=== PATIENT | female | born 1960 | race African-American/Black ===

== ENCOUNTER 2017-08-29 07:44 | Emergency (ER) | payer MEDICARE, MEDICAID ==
[~2017-08-29] VITALS: Ht 157.5 cm; Wt 84.0 kg
[2017-08-29] MEDS ORDERED: CYCLOBENZAPRINE 10MG TABLET PO ONE (11:00)
[2017-08-29] MEDS ORDERED: ACETAMINOPHEN 325MG TABLET PO ONE (11:00)
[2017-08-29] MEDS ORDERED: BACITRACIN ZINC OINT UDPKT TOP ONE (11:00)
[2017-08-29 11:41] VITALS: BP 156/71
== END 2017-08-29 11:43 | disposition home or self-care (01) ==
LOC: ER 07:56
DX: R07.81 Pleurodynia (principal); M25.562 Pain in left knee; E11.9 Type 2 diabetes mellitus without complications; I10 Essential (primary) hypertension; E03.9 Hypothyroidism, unspecified; M48.00 Spinal stenosis, site unspecified; F17.200 Nicotine dependence, unspecified, uncomplicated; E78.00 Pure hypercholesterolemia, unspecified; V89.2XXA Person injured in unspecified motor-vehicle accident, traffic, initial encounter; Y93.89 Activity, other specified; Y99.8 Other external cause status; Y92.410 Unspecified street and highway as the place of occurrence of the external cause; Z88.5 Allergy status to narcotic agent; Z98.51 Tubal ligation status
CPT/HCPCS: 71111; 73560; 99284

== ENCOUNTER 2021-02-20 18:22 | Inpatient (IN) | payer MEDICARE, MEDICAID ==
[~2021-02-20] VITALS: Ht 157.5 cm; Wt 87.5 kg
[2021-02-20 19:25] LABS: BASOPHILS % 0.9 % (0.0-2.0); EOSINOPHILS % 1.2 % (0.0-5.0); HEMOGLOBIN. 9.9 g/dL (12.0-16.0); LYMPHOCYTES % 32.3 % (20.0-50.0); MEAN CORPUSCULAR HEMOGLOBIN 22.5 pg (28.0-32.0); MEAN CORPUSCULAR VOLUME 70.2 fL (81.0-99.0); MEAN PLATELET VOLUME 10.2 fl (7.4-10.4); MONOCYTES % 10.9 % (2.0-8.0); NEUTROPHILS % 54.7 % (40.0-76.0); PLATELET 344 x1000/uL (130-400); RED BLOOD CELL COUNT 4.41 mill/uL (4.2-5.4); RED CELL DISTRIBUTION WIDTH 18.1 % (11.6-14.6)
[2021-02-20 19:27] LABS: CHLORIDE 106 mEq/L (98-107)
[2021-02-20 20:24] LABS: CLARITY URINE CLEAR (CLEAR); COLOR URINE YELLOW (YELLOW); KETONES URINE TRACE (NEGATIVE); LEUKOCYTE ESTERASE URINE NEGATIVE (NEGATIVE); NITRITE URINE NEGATIVE (NEGATIVE); OCCULT BLOOD URINE NEGATIVE (NEGATIVE); PH URINE 5.5 (4.5-8.0); PROTEIN URINE 3+ (NEGATIVE); SPECIFIC GRAVITY URINE 1.018 (1.005-1.030)
[2021-02-20] MEDS ORDERED: SODIUM CHLORIDE 0.9% 1,000 ML IV ONE (21:00)
[2021-02-20] MEDS ORDERED: ASPIRIN 325MG EC TABLET PO ONE (21:00)
[2021-02-21] MEDS ORDERED: BLOOD SUGAR DIAGNOSTIC STRIP TEST SCH (00:15)
[2021-02-21] MEDS ORDERED: INSULIN LISPRO (MEDIUM DOSE) 100 UNITS/ML SUBCUT SCH (00:15)
[2021-02-21] MEDS ORDERED: DEXTROSE 50% WATER 50ML SYRINGE IV SCH (00:15)
[2021-02-21 01:15] VITALS: BP 130/61
[2021-02-21 04:00] VITALS: BP 126/54
[2021-02-21] MEDS ORDERED: DEXTROSE 50% WATER 50ML SYRINGE IV PRN (05:00)
[2021-02-21] MEDS: INSULIN LISPRO 100 UNITS/ML SUBCUT SCH ×4 (06:17→21:03)
[2021-02-21] MEDS: BLOOD SUGAR DIAGNOSTIC STRIP TEST SCH ×4 (06:17→20:08)
[2021-02-21 08:00] VITALS: BP 125/65
[2021-02-21] MEDS ORDERED: ENOXAPARIN 40MG/0.4ML SYR SUBCUT SCH (09:00)
[2021-02-21] MEDS ORDERED: POTASSIUM CHLORIDE 20MEQ TABLET SR PO NR (09:15)
[2021-02-21] MEDS: FAMOTIDINE 20MG TABLET PO SCH (09:16)
[2021-02-21] MEDS: ENOXAPARIN 30MG/0.3ML SYR SUBCUT SCH (09:16)
[2021-02-21] MEDS: ASPIRIN 325MG EC TABLET PO SCH (10:13)
[2021-02-21 12:00] VITALS: BP 180/63
[2021-02-21] MEDS: AMLODIPINE 5MG TABLET PO SCH ×2 (12:35→23:53)
[2021-02-21] MEDS ORDERED: INSU100I41 SQ ×2 (13:55)
[2021-02-21] MEDS ORDERED: METO-396 PO (13:55)
[2021-02-21] MEDS ORDERED: BENA5TAB6 PO (13:55)
[2021-02-21] MEDS ORDERED: DOCU-138 PO (13:55)
[2021-02-21] MEDS ORDERED: ISOS40TA17 PO (13:55)
[2021-02-21] MEDS ORDERED: LEVO75TA7 PO (13:55)
[2021-02-21] MEDS ORDERED: METO-293 PO (13:55)
[2021-02-21] MEDS ORDERED: LISI10TA26 PO (13:55)
[2021-02-21] MEDS ORDERED: INSNPH SUBCUT ×2 (13:55)
[2021-02-21] MEDS ORDERED: PANT40SU PO (13:55)
[2021-02-21] MEDS ORDERED: ATOR40TA70 PO (13:55)
[2021-02-21] MEDS ORDERED: IPRATROPIUM/ALBUTEROL 0.5-3(2.5)MG/3ML NEB HHN PRN ×2 (15:15)
[2021-02-21] MEDS ORDERED: BISACODYL 10MG SUPP PR PRN ×2 (15:15)
[2021-02-21] MEDS ORDERED: ONDANSETRON HCL 4MG/2ML INJ IV PRN (15:15)
[2021-02-21] MEDS ORDERED: LORAZEPAM 2MG/ML CPJ IV PRN (15:15)
[2021-02-21 15:42] LABS: BASOPHILS % 0.7 % (0.0-2.0); EOSINOPHILS % 2.2 % (0.0-5.0); HEMATOCRIT. 32.7 % (36.0-48.0); MEAN CORPUSCULAR HEMOGLOBIN 21.9 pg (28.0-32.0); MEAN CORPUSCULAR VOLUME 71.7 fL (81.0-99.0); MEAN PLATELET VOLUME 10.6 fl (7.4-10.4); NEUTROPHILS % 54.1 % (40.0-76.0); PLATELET 292 x1000/uL (130-400); RED BLOOD CELL COUNT 4.56 mill/uL (4.2-5.4); RED CELL DISTRIBUTION WIDTH 18.6 % (11.6-14.6)
[2021-02-21 15:58] LABS: T4 FREE 1.01 ng/dL (0.76-1.46)
[2021-02-21 16:00] VITALS: BP 173/57
[2021-02-21 20:00] VITALS: BP 128/55
[2021-02-21] MEDS: ATORVASTATIN CALCIUM 40MG TABLET PO SCH (21:02)
[2021-02-22] VITALS (8 sets, daily range): BP systolic 105–186; BP diastolic 49–72
[2021-02-22 05:24] LABS: BASOPHILS % 0.5 % (0.0-2.0); HEMATOCRIT. 31.4 % (36.0-48.0); HEMOGLOBIN. 9.8 g/dL (12.0-16.0); LYMPHOCYTES % 36.1 % (20.0-50.0); MEAN CORPUSCULAR HEMOGLOBIN 21.6 pg (28.0-32.0); MEAN CORPUSCULAR VOLUME 69.2 fL (81.0-99.0); MEAN PLATELET VOLUME 10.3 fl (7.4-10.4); MONOCYTES % 9.4 % (2.0-8.0); PLATELET 306 x1000/uL (130-400); RED BLOOD CELL COUNT 4.54 mill/uL (4.2-5.4); RED CELL DISTRIBUTION WIDTH 18.4 % (11.6-14.6)
[2021-02-22] MEDS: BLOOD SUGAR DIAGNOSTIC STRIP TEST SCH ×4 (06:05→20:40)
[2021-02-22] MEDS: INSULIN LISPRO 100 UNITS/ML SUBCUT SCH ×4 (06:44→21:30)
[2021-02-22] MEDS: ASPIRIN 325MG EC TABLET PO SCH (08:49)
[2021-02-22] MEDS: ENOXAPARIN 30MG/0.3ML SYR SUBCUT SCH (08:49)
[2021-02-22] MEDS: AMLODIPINE 5MG TABLET PO SCH ×2 (08:49→21:28)
[2021-02-22] MEDS: FAMOTIDINE 20MG TABLET PO SCH (08:49)
[2021-02-22 15:50] LABS: INR 1.1; PROTHROMBIN TIME 11.5 sec (9.6-11.0)
[2021-02-22] MEDS ORDERED: INSULIN GLARGINE UD 100 UNITS/ML SYR SUBCUT NR (16:00)
[2021-02-22 17:01] LABS: PLATELET ESTIMATE NORMAL
[2021-02-22] MEDS: ATORVASTATIN CALCIUM 40MG TABLET PO SCH (21:27)
[2021-02-23] VITALS (43 sets, daily range): BP systolic 107–177; BP diastolic 19–77
[2021-02-23] MEDS: INSULIN LISPRO 100 UNITS/ML SUBCUT SCH ×5 (06:20→22:26)
[2021-02-23] MEDS: BLOOD SUGAR DIAGNOSTIC STRIP TEST SCH ×5 (06:20→21:59)
[2021-02-23 07:37] LABS: BASOPHILS % 0.5 % (0.0-2.0); EOSINOPHILS % 3.1 % (0.0-5.0); HEMOGLOBIN. 9.7 g/dL (12.0-16.0); LYMPHOCYTES % 33.4 % (20.0-50.0); MEAN CORPUSCULAR HEMOGLOBIN 21.8 pg (28.0-32.0); MEAN CORPUSCULAR VOLUME 69.9 fL (81.0-99.0); MEAN PLATELET VOLUME 10.3 fl (7.4-10.4); MONOCYTES % 10.4 % (2.0-8.0); NEUTROPHILS % 52.6 % (40.0-76.0); PLATELET 302 x1000/uL (130-400); RED BLOOD CELL COUNT 4.43 mill/uL (4.2-5.4); RED CELL DISTRIBUTION WIDTH 18.1 % (11.6-14.6)
[2021-02-23] MEDS: AMLODIPINE 5MG TABLET PO SCH ×2 (08:42→21:00)
[2021-02-23] MEDS: ASPIRIN 325MG EC TABLET PO SCH (08:43)
[2021-02-23] MEDS: FAMOTIDINE 20MG TABLET PO SCH (08:43)
[2021-02-23] MEDS: HYDRALAZINE 20MG/ML VIAL IV PRN ×2 (08:44→16:40)
[2021-02-23] MEDS ORDERED: LIDOCAINE HCL 1% 20ML VIAL (Pyxis) INJ ONE (09:47)
[2021-02-23] MEDS ORDERED: BACITRACIN 15GM TUBE TOP ONE (09:47)
[2021-02-23] MEDS ORDERED: THROMBIN (BOVINE) 5000 UNITS/VIAL TOP ONE ×2 (09:48→10:37)
[2021-02-23] MEDS ORDERED: HEPARIN SODIUM 1,000 UNIT/1ML VIAL IV ONE (09:48)
[2021-02-23] MEDS ORDERED: BUPIVACAINE HCL/PF 0.5% (5MG/ML) 10ML ONE (09:48)
[2021-02-23] MEDS ORDERED: SODIUM CHLORIDE 0.9% 1,000 ML ONE (09:49)
[2021-02-23] MEDS ORDERED: POLYMYXIN B SULFATE 500000 UNITS/VIAL ONE (09:49)
[2021-02-23] MEDS ORDERED: SODIUM CHLORIDE 0.9% INJ 10ML FLUSH IVF ONE (09:49)
[2021-02-23] MEDS: INSULIN GLARGINE UD 100 UNITS/ML SYR SUBCUT SCH ×2 (10:00→22:25)
[2021-02-23] MEDS ORDERED: INSULIN GLARGINE UD 100 UNITS/ML SYR SUBCUT SCH (10:00)
[2021-02-23] MEDS ORDERED: NICARDIPINE 40MG/200ML PREMIX 200 ML IV PRN (11:15)
[2021-02-23] MEDS ORDERED: MORPHINE SULFATE 4 MG/ML CPJ (NOT FOR IM USE) IV PRN (11:15)
[2021-02-23] MEDS ORDERED: MIDAZOLAM HCL 2 MG/2 ML VIAL ONE (11:31)
[2021-02-23] MEDS ORDERED: FENTANYL CITRATE/PF 50MCG/ML 2ML VIAL ONE ×2 (11:31→11:50)
[2021-02-23] MEDS ORDERED: ROCURONIUM BROMIDE 10MG/ML VIAL 5ML IV ONE (11:31)
[2021-02-23] MEDS ORDERED: PROPOFOL 200MG/20ML VIAL IV ONE (11:31)
[2021-02-23] MEDS ORDERED: NEOSTIGMINE METHYLSULFATE 1MG/ML 10 ML VIAL ONE (11:31)
[2021-02-23] MEDS ORDERED: SUCCINYLCHOLINE CHLORIDE 200MG/10ML IV ONE (11:32)
[2021-02-23] MEDS ORDERED: SODIUM CHLORIDE 0.9% 10ML VIAL ONE (11:32)
[2021-02-23] MEDS ORDERED: GLYCOPYRROLATE 0.2 MG/ML 2ML VIAL ONE (11:32)
[2021-02-23] MEDS ORDERED: ONDANSETRON HCL 4MG/2ML INJ ONE (11:32)
[2021-02-23] MEDS ORDERED: PHENYLEPHRINE HCL 10 MG/ML 1ML (IV VIAL) IV ONE (11:32)
[2021-02-23] MEDS ORDERED: CEFAZOLIN SODIUM 1000MG/VIAL ONE (11:32)
[2021-02-23] MEDS ORDERED: DEXAMETHASONE 4MG/ML 1ML VIAL ONE (11:32)
[2021-02-23] MEDS ORDERED: METOCLOPRAMIDE HCL 10MG/2ML VIAL ONE (11:32)
[2021-02-23] MEDS ORDERED: LABETALOL HCL 5MG/ML VIAL 20ML IV ONE (12:09)
[2021-02-23] MEDS ORDERED: HEPARIN 1000 UNITS/ML 10ML ONE (12:19)
[2021-02-23] MEDS ORDERED: NALOXONE HCL 0.4MG/ML VIAL IV PRN (12:30)
[2021-02-23] MEDS ORDERED: HYDRALAZINE 20MG/ML VIAL ONE (12:46)
[2021-02-23] MEDS ORDERED: NICARDIPINE 50 MG in SODIUM CHLORIDE 0.9% 250 ML IV PRN (15:00)
[2021-02-23] MEDS ORDERED: TRAMADOL 50MG TABLET PO PRN (15:00)
[2021-02-23] MEDS: ATORVASTATIN CALCIUM 40MG TABLET PO SCH (21:00)
[2021-02-24] VITALS (97 sets, daily range): BP systolic 67–178; BP diastolic 25–96
[2021-02-24 06:58] LABS: BASOPHILS % 0.1 % (0.0-2.0); HEMATOCRIT. 29.7 % (36.0-48.0); HEMOGLOBIN. 9.3 g/dL (12.0-16.0); MEAN CORPUSCULAR HEMOGLOBIN 21.7 pg (28.0-32.0); MEAN CORPUSCULAR VOLUME 69.2 fL (81.0-99.0); MEAN PLATELET VOLUME 10.8 fl (7.4-10.4); MONOCYTES % 6.6 % (2.0-8.0); NEUTROPHILS % 85.3 % (40.0-76.0); PLATELET 330 x1000/uL (130-400); RED BLOOD CELL COUNT 4.29 mill/uL (4.2-5.4); RED CELL DISTRIBUTION WIDTH 18.1 % (11.6-14.6)
[2021-02-24] MEDS: BLOOD SUGAR DIAGNOSTIC STRIP TEST SCH ×4 (08:21→21:15)
[2021-02-24] MEDS: ASPIRIN 325MG EC TABLET PO SCH (09:22)
[2021-02-24] MEDS: FAMOTIDINE 20MG TABLET PO SCH (09:22)
[2021-02-24] MEDS: INSULIN LISPRO 100 UNITS/ML SUBCUT SCH ×4 (09:23→21:22)
[2021-02-24] MEDS: INSULIN GLARGINE UD 100 UNITS/ML SYR SUBCUT SCH ×2 (09:23→21:22)
[2021-02-24] MEDS: AMLODIPINE 5MG TABLET PO SCH ×3 (09:23→21:21)
[2021-02-24 13:11] LABS: ATYPICAL P-ANCA <1:20 titer (Neg:<1:20); CYTOPLASMIC C-ANCA <1:20 titer (Neg:<1:20); PERINUCLEAR P-ANCA <1:20 titer (Neg:<1:20)
[2021-02-24] MEDS: HYDRALAZINE HCL 50MG TABLET PO SCH ×2 (14:37→22:21)
[2021-02-24] MEDS: CEFTRIAXONE 1,000 MG in DEXTROSE 5% WATER 50 ML IV SCH (14:41)
[2021-02-24 15:10] LABS: ANTI-CARDIOLIPIN AB IGA < 9 APL U/mL (0-11)
[2021-02-24 18:46] LABS: CLARITY URINE CLEAR (CLEAR); COLOR URINE YELLOW (YELLOW); KETONES URINE TRACE (NEGATIVE); LEUKOCYTE ESTERASE URINE NEGATIVE (NEGATIVE); NITRITE URINE NEGATIVE (NEGATIVE); OCCULT BLOOD URINE NEGATIVE (NEGATIVE); PROTEIN URINE 3+ (NEGATIVE); SPECIFIC GRAVITY URINE 1.015 (1.005-1.030); UROBILINOGEN URINE 0.2 E.U./dL (0.2-1.0)
[2021-02-24] MEDS: ATORVASTATIN CALCIUM 40MG TABLET PO SCH (21:20)
[2021-02-25] VITALS (52 sets, daily range): BP systolic 57–178; BP diastolic 30–109
[2021-02-25 06:52] LABS: BASOPHILS % 0.4 % (0.0-2.0); EOSINOPHILS % 0.2 % (0.0-5.0); LYMPHOCYTES % 15.8 % (20.0-50.0); MEAN CORPUSCULAR HEMOGLOBIN 22.3 pg (28.0-32.0); MEAN CORPUSCULAR VOLUME 69.4 fL (81.0-99.0); MEAN PLATELET VOLUME 10.4 fl (7.4-10.4); MONOCYTES % 8.3 % (2.0-8.0); NEUTROPHILS % 75.3 % (40.0-76.0); PLATELET 308 x1000/uL (130-400); RED BLOOD CELL COUNT 4.03 mill/uL (4.2-5.4)
[2021-02-25] MEDS: HYDRALAZINE HCL 50MG TABLET PO SCH ×3 (06:57→21:08)
[2021-02-25] MEDS: BLOOD SUGAR DIAGNOSTIC STRIP TEST SCH ×3 (08:31→17:56)
[2021-02-25] MEDS: ASPIRIN 325MG EC TABLET PO SCH (08:31)
[2021-02-25] MEDS: FAMOTIDINE 20MG TABLET PO SCH (08:31)
[2021-02-25] MEDS: AMLODIPINE 5MG TABLET PO SCH ×2 (08:32→21:08)
[2021-02-25] MEDS: INSULIN LISPRO 100 UNITS/ML SUBCUT SCH ×4 (09:26→21:09)
[2021-02-25] MEDS: INSULIN GLARGINE UD 100 UNITS/ML SYR SUBCUT SCH ×2 (10:47→21:09)
[2021-02-25] MEDS: CEFTRIAXONE 1,000 MG in DEXTROSE 5% WATER 50 ML IV SCH (13:22)
[2021-02-25 19:10] LABS: ANTI-MYELOPEROXIDASE AB < 9.0 U/mL (0.0-9.0); ANTI-PROTEINASE 3 ABS < 3.5 U/mL (0.0-3.5)
[2021-02-25] MEDS: ATORVASTATIN CALCIUM 40MG TABLET PO SCH (21:08)
[2021-02-26] VITALS (23 sets, daily range): BP systolic 116–190; BP diastolic 49–110
[2021-02-26] MEDS: HYDRALAZINE HCL 50MG TABLET PO SCH ×3 (05:21→21:26)
[2021-02-26] MEDS: HYDRALAZINE 20MG/ML VIAL IV PRN (05:50)
[2021-02-26 06:17] LABS: BASOPHILS % 0.7 % (0.0-2.0); EOSINOPHILS % 0.8 % (0.0-5.0); HEMATOCRIT. 29.4 % (36.0-48.0); HEMOGLOBIN. 9.4 g/dL (12.0-16.0); LYMPHOCYTES % 16.1 % (20.0-50.0); MEAN CORPUSCULAR HEMOGLOBIN 21.8 pg (28.0-32.0); MEAN CORPUSCULAR VOLUME 68.2 fL (81.0-99.0); MEAN PLATELET VOLUME 10.7 fl (7.4-10.4); MONOCYTES % 10.5 % (2.0-8.0); NEUTROPHILS % 71.9 % (40.0-76.0); PLATELET 321 x1000/uL (130-400); RED BLOOD CELL COUNT 4.31 mill/uL (4.2-5.4); RED CELL DISTRIBUTION WIDTH 17.8 % (11.6-14.6)
[2021-02-26] MEDS: BLOOD SUGAR DIAGNOSTIC STRIP TEST SCH ×4 (08:19→20:55)
[2021-02-26] MEDS: AMLODIPINE 5MG TABLET PO SCH ×2 (08:20→20:56)
[2021-02-26] MEDS: FAMOTIDINE 20MG TABLET PO SCH (08:20)
[2021-02-26] MEDS: ACETAMINOPHEN 325MG TABLET PO PRN ×2 (08:20→21:26)
[2021-02-26] MEDS: ASPIRIN 325MG EC TABLET PO SCH (08:20)
[2021-02-26] MEDS: INSULIN LISPRO 100 UNITS/ML SUBCUT SCH ×4 (08:21→21:26)
[2021-02-26] MEDS: CEFTRIAXONE 1,000 MG in DEXTROSE 5% WATER 50 ML IV SCH (15:01)
[2021-02-26] MEDS: INSULIN GLARGINE UD 100 UNITS/ML SYR SUBCUT SCH ×2 (15:08→21:25)
[2021-02-26] MEDS: ATORVASTATIN CALCIUM 40MG TABLET PO SCH (20:56)
[2021-02-27] VITALS (13 sets, daily range): BP systolic 122–155; BP diastolic 54–98
[2021-02-27] MEDS: HYDRALAZINE HCL 50MG TABLET PO SCH ×3 (05:03→21:36)
[2021-02-27 07:36] LABS: BASOPHILS % 0.6 % (0.0-2.0); EOSINOPHILS % 1.7 % (0.0-5.0); HEMATOCRIT. 29.2 % (36.0-48.0); HEMOGLOBIN. 9.2 g/dL (12.0-16.0); LYMPHOCYTES % 19.3 % (20.0-50.0); MEAN CORPUSCULAR HEMOGLOBIN 21.8 pg (28.0-32.0); MEAN CORPUSCULAR VOLUME 69.5 fL (81.0-99.0); MEAN PLATELET VOLUME 10.1 fl (7.4-10.4); MONOCYTES % 11.3 % (2.0-8.0); NEUTROPHILS % 67.1 % (40.0-76.0); PLATELET 313 x1000/uL (130-400); RED CELL DISTRIBUTION WIDTH 18.1 % (11.6-14.6)
[2021-02-27] MEDS: BLOOD SUGAR DIAGNOSTIC STRIP TEST SCH ×4 (08:12→20:13)
[2021-02-27] MEDS: INSULIN LISPRO 100 UNITS/ML SUBCUT SCH ×4 (08:25→20:33)
[2021-02-27] MEDS: ACETAMINOPHEN 325MG TABLET PO PRN ×2 (09:34→20:31)
[2021-02-27] MEDS: ASPIRIN 325MG EC TABLET PO SCH (10:07)
[2021-02-27] MEDS: AMLODIPINE 5MG TABLET PO SCH ×2 (10:08→20:32)
[2021-02-27] MEDS: FAMOTIDINE 20MG TABLET PO SCH (10:08)
[2021-02-27] MEDS: INSULIN GLARGINE UD 100 UNITS/ML SYR SUBCUT SCH ×2 (10:09→21:35)
[2021-02-27] MEDS: CLOPIDOGREL 75MG TABLET PO SCH (12:29)
[2021-02-27] MEDS ORDERED: CLOP-31 MT (14:27)
[2021-02-27] MEDS ORDERED: ASPI-1497 MT (14:27)
[2021-02-27] MEDS ORDERED: ATOR40TA70 PO (14:27)
[2021-02-27] MEDS ORDERED: HYDR-4135 MT (14:27)
[2021-02-27] MEDS: CEFTRIAXONE 1,000 MG in DEXTROSE 5% WATER 50 ML IV SCH (15:18)
[2021-02-27] MEDS: ATORVASTATIN CALCIUM 40MG TABLET PO SCH (20:32)
[2021-02-28] VITALS (11 sets, daily range): BP systolic 132–164; BP diastolic 60–73
[2021-02-28] MEDS: HYDRALAZINE 20MG/ML VIAL IV PRN (03:40)
[2021-02-28] MEDS: HYDRALAZINE HCL 50MG TABLET PO SCH (05:55)
[2021-02-28 06:14] LABS: BASOPHILS % 0.6 % (0.0-2.0); EOSINOPHILS % 2.3 % (0.0-5.0); HEMATOCRIT. 29.1 % (36.0-48.0); HEMOGLOBIN. 9.1 g/dL (12.0-16.0); LYMPHOCYTES % 23.1 % (20.0-50.0); MEAN CORPUSCULAR HEMOGLOBIN 21.8 pg (28.0-32.0); MEAN CORPUSCULAR VOLUME 70.3 fL (81.0-99.0); MEAN PLATELET VOLUME 10.3 fl (7.4-10.4); MONOCYTES % 10.8 % (2.0-8.0); NEUTROPHILS % 63.2 % (40.0-76.0); PLATELET 322 x1000/uL (130-400); RED BLOOD CELL COUNT 4.15 mill/uL (4.2-5.4); RED CELL DISTRIBUTION WIDTH 17.9 % (11.6-14.6)
[2021-02-28] MEDS: BLOOD SUGAR DIAGNOSTIC STRIP TEST SCH (08:14)
[2021-02-28] MEDS: FAMOTIDINE 20MG TABLET PO SCH (08:52)
[2021-02-28] MEDS: AMLODIPINE 5MG TABLET PO SCH (08:52)
[2021-02-28] MEDS: ASPIRIN 325MG EC TABLET PO SCH (08:52)
[2021-02-28] MEDS: CLOPIDOGREL 75MG TABLET PO SCH (08:52)
[2021-02-28] MEDS: INSULIN LISPRO 100 UNITS/ML SUBCUT SCH (08:53)
[2021-02-28] MEDS: INSULIN GLARGINE UD 100 UNITS/ML SYR SUBCUT SCH (10:24)
== END 2021-02-28 13:15 | disposition home health service (06) | DRG 37 ==
LOC: ER 18:22 → 7EST 21:20 → EDBEDREQ 21:53 → ENRESERV 22:15 → CVICU 02-23 12:18 → 5EST 02-26 09:52
PROVIDERS: ADMIT Internal Medicine; ATTEND Internal Medicine
PROC: 03CL0ZZ Extirpation of Matter from Left Internal Carotid Artery, Open Approach (ICD-10-PCS; principal; 2021-02-23)
PROC: 4A10X4Z Monitoring of Central Nervous Electrical Activity, External Approach (ICD-10-PCS; 2021-02-23)
PROC: 03CJ0ZZ Extirpation of Matter from Left Common Carotid Artery, Open Approach (ICD-10-PCS; 2021-02-23)
DX: I63.9 Cerebral infarction, unspecified (principal); E43 Unspecified severe protein-calorie malnutrition; N17.0 Acute kidney failure with tubular necrosis; I65.22 Occlusion and stenosis of left carotid artery; D64.9 Anemia, unspecified; E03.9 Hypothyroidism, unspecified; E11.22 Type 2 diabetes mellitus with diabetic chronic kidney disease; E11.65 Type 2 diabetes mellitus with hyperglycemia; E87.6 Hypokalemia; G83.34 Monoplegia, unspecified affecting left nondominant side; F17.210 Nicotine dependence, cigarettes, uncomplicated; I12.9 Hypertensive chronic kidney disease with stage 1 through stage 4 chronic kidney disease, or unspecified chronic kidney disease; N18.9 Chronic kidney disease, unspecified; Z20.822 Contact with and (suspected) exposure to COVID-19; R29.810 Facial weakness; N28.1 Cyst of kidney, acquired; Z86.73 Personal history of transient ischemic attack (TIA), and cerebral infarction without residual deficits; Z98.51 Tubal ligation status; Z68.34 Body mass index [BMI] 34.0-34.9, adult; Z88.5 Allergy status to narcotic agent; Z79.899 Other long term (current) drug therapy
CPT/HCPCS: 36415; 70551; 71045; 76770; 80048; 80053; 80061; 81003; 82962; 83036; 83520; 84145; 84439; 84443; 84550; 85025; 86147; 86256; 86850; 86900; 86920; 87426; 88304; 88311; 92610; 93005; 93306; 93880; 93970; 94667; 95816; 97110; 97116; 97162; 97164; 97166; 97530; 97535; 99291; J0330; J0360; J0690; J0696; J1100; J1644; J1650; J1815; J2250; J2370; J2405; J2704; J2710; J2765; J3010; J3490; J7030; J7040; J7042; J7060